=== PATIENT | female | born 1960 | race Caucasian/White ===

== ENCOUNTER 2021-10-24 23:46 | Emergency (ER) | payer BC, SELFPAY ==
[2021-10-24 23:55] VITALS: BP 178/99; PULSE 84; RESP 22; TEMP 36.8; O2SAT 99; BMI 23.8
[2021-10-25] VITALS (15 sets, daily range): BP systolic 119–185; BP diastolic 84–124; PULSE 79–159; RESP 12–24; O2SAT 96–99
--- NOTE | 2021-10-25 00:11 | DI.RAD.S_ITS ---
PROCEDURE: XR CHEST 1V INDICATIONS: chest pain TECHNIQUE: One view of the chest was acquired. COMPARISON: None. FINDINGS: Surgical changes and devices: None. Lungs and pleura: Lungs are clear. No pleural effusions or pneumothorax. Mediastinum: Mediastinal contours appear normal. Heart size is normal. Bones and chest wall: No suspicious bony lesions. Overlying soft tissues appear unremarkable. IMPRESSION: 1. No acute cardiopulmonary disease. Dictated by: Jose L Ordaz M.D. on 10/25/2021 at 1:00 Approved by: Jose L Ordaz M.D. on 10/25/2021 at 1:00
[2021-10-25 00:24] LABS: Add Manual Diff / Slide Review NO; Basophils Absolute Auto 100 /uL (0-100); Basophils Percent Auto 0.7 % (0-2); Eosinophils Absolute Auto 200 /uL (0-450); Hematocrit 47.5 % (36-46); Lymphocytes Absolute Auto 2300 /uL (1100-4500); Lymphocytes Percent Auto 20.2 % (25-40); Mean Corpuscular HGB Conc 33.7 % (30-36); Mean Corpuscular Hemoglobin 30.9 PG (26-34); Mean Corpuscular Volume 91.7 fL (80-100); Monocytes Absolute Auto 1000 /uL (0-900); Monocytes Percent Auto 8.4 % (3-14); Neutrophils Absolute Auto 7800 /uL (1500-7000); Neutrophils Percent Auto 68.7 % (50-75); Platelet Count 304 X10^3/uL (150-400); Red Blood Cell Count 5.18 X10^6/uL (4.0-5.2); Red Cell Distribution Width 13.6 % (11.6-14.8); White Blood Cell Count 11.4 X10^3/uL (4.5-11.0)
[2021-10-25 00:33] LABS: INR 1.1 (0.9-1.3); Prothrombin Time 12.5 SECONDS (10.1-12.7)
[2021-10-25 00:46] LABS: D Dimer < 500 ng/ml (<500)
[2021-10-25 00:47] LABS: Alanine Aminotransferase 35 IU/L (<35); Albumin 4.4 g/dL (3.5-5.0); Albumin Globulin Ratio 1.4 (1.0-2.8); Alkaline Phosphatase 97 U/L (38-126); Aspartate Aminotransferase 28 IU/L (14-36); BUN Creatinine Ratio 12.3 (6-22); Bilirubin Total 0.6 mg/dL (0.2-1.3); Blood Urea Nitrogen 7 mg/dL (7-17); Calcium 9.1 mg/dL (8.4-10.2); Carbon Dioxide 27 mmol/L (22-32); Chloride 102 mmol/L (98-107); Creatine Kinase 97 U/L (30-135); Estimated Glomerular Filt Rate > 60 mL/min (>60); Globulin 3.2 g/dL (1.7-4.1); Glucose 137 mg/dL (80-110); HEMOLYSIS < 15 (0-50); Lipase 58 U/L (23-300); Magnesium 1.9 mg/dL (1.6-2.3); Potassium 3.9 mmol/L (3.4-5.1); Sodium 137 mmol/L (137-145); Total Protein 7.6 g/dL (6.3-8.2)
[2021-10-25 00:58] LABS: Troponin I < 0.012 ng/mL (0.01-0.034)
[2021-10-25] MEDS: dilTIAZem 5 MG/ML SDV 20 MG IV (01:31)
[2021-10-25] MEDS: DILTIAZEM 125 MG/125 ML PIGGYBACK IV (01:35)
--- NOTE | 2021-10-25 02:24 | ED.CHESTPAIN ---
HPI - Chest Pain General Chief Complaint: Chest Pain Stated Complaint: Afib Time Seen by Provider: 10/25/21 00:04 Source: patient Mode of arrival: Ambulatory Limitations: no limitations History of Present Illness HPI narrative: 61-year-old woman visiting from [place] with a newly diagnosed history of paroxysmal atrial fibrillation. She been having episodes of exertional dyspnea that was unexplained until July of this year when she was noted to be in atrial fibrillation. She is followed by a formulation chemist and currently is on flecainide 150 mg(1 week ago it had been 100 mg), carvedilol 12.5 mg(1 week ago was at 25 mg and prior to that she had been on metoprolol). She has never been cardioverted with her most recent episode of atrial fibrillation she was given a dose of diltiazem it sounds like she self converted. She is scheduled for an ablation in January. She is not currently anticoagulated beyond aspirin. Additional medications include atorvastatin 10 mg hydrochlorothiazide 12.5 mg and cetirizine 10 mg. She notes that at 1:00 p.m. last night she began having increasing dyspnea, suspected that she was in atrial fibrillation. She flew from [place] this morning to [place] to visit her sister here in [place] and is continuing to have exertional dyspnea and feeling unwell. She noted that her heart rate was elevated as was her blood pressure and comes in for further evaluation. She states that she has not been having lower extremity edema, orthopnea, fevers, cough, headaches, abdominal pain, vomiting, diarrhea. She has not had overt chest pain. Related Data Previous Rx's Medication Instructions Recorded apixaban 5 mg tablet (Eliquis) 5 mg PO BID #60 tabs 10/25/21 Allergies Allergy/AdvReac Type Severity Reaction Status Date / Time No Known Drug Allergies Allergy Verified 10/25/21 03:18 Review of Systems Review of Systems Narrative: Remainder of complete review of systems is otherwise unremarkable except for that included in the HPI. Patient History Medical History (Updated 10/25/21 @ 04:18 by Clarisse Fernandez MD) Hyperlipidemia Hypertension Paroxysmal atrial fibrillation Seasonal allergies Social History Smoking Status: Former smoker Smoking Status: Former smoker tobacco type: cigarettes Substance Use Type: does not use Exam Initial Vital Signs Initial Vital Signs: Vital Signs Temperature 98.3 F 10/24/21 23:55 Pulse Rate 84 10/24/21 23:55 Respiratory Rate 22 10/24/21 23:55 Blood Pressure 178/99 H 10/24/21 23:55 Pulse Oximetry 99 10/24/21 23:55 Oxygen Delivery Method 10/24/21 23:55 General: Healthy appearing, in no acute distress. Able to give a complete and coherent history. Well-nourished well-developed HEENT: Moist mucous membranes, normal sclera with reactive pupils, Neck: No JVD, supple Respiratory: Lungs are clear to auscultation, no wheezing no rales no rhonchi. Full and symmetrical air movement Cardiac: Rapid and irregular with no murmurs no bruits Abdomen: Soft, nontender, good bowel tones, no flank pain Skin: Warm and dry, no rashes Neurologic: Grossly neurologically intact with no obvious asymmetries or abnormalities Extremities: No trauma, well perfused, no lower extremity edema no chronic venous stasis changes Psych: Cooperative, appropriate insight and affect Course Orders Ordered: ED Orders 10/25/21 00:04 EKG-12 Lead Stat 10/25/21 00:11 XR chest 1V Stat 10/25/21 00:15 Complete Blood Count AUTO DIFF Stat Comprehensive Metabolic Panel Stat D Dimer Stat Lipase Stat Magnesium Stat Prothrombin Time INR Stat Troponin & CK Cardiac Panel Stat DILTIAZEM (Diltiazem 125 Mg/125 Ml-D5w) 125 mg in 125 mls @ 5 mls/hr IV TITRATE [facility]; Protocol Last Admin: 10/25/21 01:35 Dose: 5 mg/hr, 5 mls/hr Documented By: PARISH Discontinued Medications Diltiazem HCl (Diltiazem 5 Mg/Ml Sdv) 20 mg IV NOW ONE Stop: 10/25/21 01:12 Last Admin: 10/25/21 01:31 Dose: 20 mg Documented By: PARISH Vital Signs Vital signs: Vital Signs - 8 hr 10/24/21 23:55 10/25/21 00:14 10/25/21 00:30 Temperature 98.3 F Pulse Rate 84 98 H Respiratory Rate 22 20 Blood Pressure 178/99 H 180/119 H Pulse Oximetry 99 99 Oxygen Delivery Method Room Air 10/25/21 00:30 10/25/21 00:32 10/25/21 00:32 Temperature Pulse Rate 106 H 107 H Respiratory Rate 16 19 Blood Pressure 185/113 H Pulse Oximetry 98 99 Oxygen Delivery Method 10/25/21 01:31 10/25/21 01:00 10/25/21 01:00 Temperature Pulse Rate 120 H 115 H Respiratory Rate 18 Blood Pressure 150/103 H 181/124 H Pulse Oximetry 97 Oxygen Delivery Method 10/25/21 01:30 10/25/21 01:30 10/25/21 01:35 Temperature Pulse Rate 120 H 79 Respiratory Rate 17 15 Blood Pressure 150/103 H 136/84 Pulse Oximetry 96 96 Oxygen Delivery Method 10/25/21 02:01 10/25/21 02:30 10/25/21 02:54 Temperature Pulse Rate 159 H 109 H 106 H Respiratory Rate 15 16 Blood Pressure Pulse Oximetry 97 96 Oxygen Delivery Method 10/25/21 03:00 10/25/21 03:15 10/25/21 03:15 Temperature Pulse Rate 104 H 107 H Respiratory Rate 12 13 Blood Pressure 125/88 Pulse Oximetry 97 97 Oxygen Delivery Method MDM - Chest Pain Lab Data Result diagrams: 10/25/21 00:15 10/25/21 00:15 Labs: Lab Results 10/25/21 10/25/21 10/25/21 Range/Units 00:15 00:15 00:15 WBC 11.4 H (4.5-11.0) X10^3/uL RBC 5.18 (4.0-5.2) X10^6/uL Hgb 16.0 (12.0-16.0) g/dL Hct 47.5 H (36-46) % MCV 91.7 (80-100) fL MCH 30.9 (26-34) PG MCHC 33.7 (30-36) % RDW 13.6 (11.6-14.8) % Plt Count 304 (150-400) X10^3/uL Neut % (Auto) 68.7 (50-75) % Lymph % (Auto) 20.2 L (25-40) % [place] % (Auto) 8.4 (3-14) % Eos % (Auto) 2.0 (2-4) % Baso % (Auto) 0.7 (0-2) % Neut # (Auto) 7800 H (0802-9185) /uL Lymph # (Auto) 2300 (4309-0011) /uL [place] # (Auto) 1000 H (0-900) /uL Eos # (Auto) 200 (0-450) /uL Baso # (Auto) 100 (0-100) /uL PT 12.5 (10.1-12.7) SECONDS INR 1.1 (0.9-1.3) D-Dimer (<500) ng/ml Sodium 137 (137-145) mmol/L Potassium 3.9 (3.4-5.1) mmol/L Chloride 102 (98-107) mmol/L Carbon Dioxide 27 (22-32) mmol/L BUN 7 (7-17) mg/dL Creatinine 0.57 (0.52-1.04) mg/dL Estimated GFR > 60 (>60) mL/min BUN/Creatinine Ratio 12.3 (6-22) Glucose 137 H (80-110) mg/dL Calcium 9.1 (8.4-10.2) mg/dL Magnesium 1.9 (1.6-2.3) mg/dL Total Bilirubin 0.6 (0.2-1.3) mg/dL AST 28 (14-36) IU/L ALT 35 H (<35) IU/L Alkaline Phosphatase 97 (38-126) U/L Total Creatine Kinase 97 (30-135) U/L CK-MB (CK-2) TNP CK-MB (CK-2) Rel Index TNP Troponin I < 0.012 (0.01-0.034) ng/mL Total Protein 7.6 (6.3-8.2) g/dL Albumin 4.4 (3.5-5.0) g/dL Globulin 3.2 (1.7-4.1) g/dL Albumin/Globulin Ratio 1.4 (1.0-2.8) Lipase 58 (23-300) U/L 10/25/21 Range/Units 00:15 WBC (4.5-11.0) X10^3/uL RBC (4.0-5.2) X10^6/uL Hgb (12.0-16.0) g/dL Hct (36-46) % MCV (80-100) fL MCH (26-34) PG MCHC (30-36) % RDW (11.6-14.8) % Plt Count (150-400) X10^3/uL Neut % (Auto) (50-75) % Lymph % (Auto) (25-40) % [place] % (Auto) (3-14) % Eos % (Auto) (2-4) % Baso % (Auto) (0-2) % Neut # (Auto) (7840-4639) /uL Lymph # (Auto) (6169-6814) /uL [place] # (Auto) (0-900) /uL Eos # (Auto) (0-450) /uL Baso # (Auto) (0-100) /uL PT (10.1-12.7) SECONDS INR (0.9-1.3) D-Dimer < 500 (<500) ng/ml Sodium (137-145) mmol/L Potassium (3.4-5.1) mmol/L Chloride (98-107) mmol/L Carbon Dioxide (22-32) mmol/L BUN (7-17) mg/dL Creatinine (0.52-1.04) mg/dL Estimated GFR (>60) mL/min BUN/Creatinine Ratio (6-22) Glucose (80-110) mg/dL Calcium (8.4-10.2) mg/dL Magnesium (1.6-2.3) mg/dL Total Bilirubin (0.2-1.3) mg/dL AST (14-36) IU/L ALT (<35) IU/L Alkaline Phosphatase (38-126) U/L Total Creatine Kinase (30-135) U/L CK-MB (CK-2) CK-MB (CK-2) Rel Index Troponin I (0.01-0.034) ng/mL Total Protein (6.3-8.2) g/dL Albumin (3.5-5.0) g/dL Globulin (1.7-4.1) g/dL Albumin/Globulin Ratio (1.0-2.8) Lipase (23-300) U/L Imaging Data Chest x-ray: Radiologist's Impression: FINDINGS:? ? Surgical changes and devices:? None.? ? Lungs and pleura:? Lungs are clear.? No pleural effusions or pneumothorax.? ? Mediastinum:? Mediastinal contours appear normal.? Heart size is normal.? ? Bones and chest wall:? No suspicious bony lesions.? Overlying soft tissues appear unremarkable.? ? IMPRESSION:? ? 1.? No acute cardiopulmonary disease. ? ? ? Dictated by: Jose L Ordaz M.D. on 10/25/2021 at 1:00 ? ? ECG Data Interpretation: AFib with rapid ventricular response, rate of [address] T wave changes Normal axis MDM Narrative Medical decision making narrative: 61-year-old woman with paroxysmal atrial fibrillation currently on flecainide that was increased a week ago and Coreg that was decreased to week ago followed by cardiology at the [facility] scheduled for ablation in January presents with paroxysmal atrial fibrillation and hypertension along with dyspnea. Labs are reassuring with a normal troponin after at least 24 hours of atrial fibrillation. Given her history she certainly noticed her atrial fibrillation at 1:00 p.m. last night but I am not convinced that 1:00 p.m. was the actual onset of her atrial fibrillation. She is not currently anticoagulated beyond aspirin and I am not comfortable with cardioversion in the emergency department. She is given a bolus of diltiazem and a diltiazem drip with her rate coming down into the 70s and converting to atrial flutter with of variable 3:1 and 4:1 block. Blood pressure remains slightly elevated however her diastolics have been consistently above 100 over the last week based on her home blood pressure readings. There is no evidence of acute coronary syndrome or congestive heart failure at this time. No suggestion of pulmonary embolism, DVT or stroke Care is reviewed with the formulation chemist on-call for her primary cardiology group in [place], Dr. Neo Quintero. His recommendation was to go ahead and anticoagulate her, avoid electrical cardioversion from the emergency department and consider JULIAN evaluation prior to cardioversion. He felt that not making significant medication changes as medications were just changed a week ago was likely appropriate and did feel that going back to 25 mg of [place] Reg as long as her rate and blood pressure are elevated with safe. She does have scheduled follow-up when she returns to [place] however if she continues to remain symptomatic will need to return to the emergency department and be seen by Cardiology with discussion of julian and cardioversion. In the meantime will start her on apixaban 5 mg b.i.d. findings and plans are reviewed with her. She is safe for discharge home at this time Critical Care Time Critical Care Time Critical Care Time: Yes Total Critical Care Time: 33 Attestation: Critical care time is separate from other billable procedures. There is a high probability of a significant, sudden or life-threatening deterioration that requires my full and direct attention, intervention and personal management. This critical care time includes consultation with family and other consulting doctors, review of records, and interpretation of data from labs, EKGs and imaging as well as managements of atrial fibrillation with rapid ventricular response, hypertension with IV hypertensive management. Discharge Plan Departure Patient Disposition: Home Clinical Impression: Atrial fibrillation with RVR Instructions: DI for Atrial Fibrillation Activity Restrictions/Additional Instructions: Thank you for coming in today I know that atrial fibrillation can be a very frustrating disease After talking with the formulation chemist on-call for your formulation chemist in [place] I have a couple of recommendations: 1. It is safe for you to go home. After workup here in the emergency department there is no evidence of heart attack, heart attack like syndrome or congestive heart failure 2. I am going to start you on Eliquis/apixaban a blood thinner to reduce your risk of stroke related to paroxysmal atrial fibrillation. You have been given 5 mg in the emergency department and a prescription for a month. You need to continue 5 mg twice a day until directed by your formulation chemist. 3. Please continue your 150 mg of flecainide, this needs at least another week at this higher dose before there are any additional changes 4. While you are in atrial fibrillation, please take 25 mg morning and night of your Coreg. If you are in regular sinus rhythm and your heart rate is slow, please decrease back to 12.5 mg of coreg, morning and evening. 5. If you are having chest pain, becoming more short of breath, find that you have trouble laying flat please return to the emergency department. You are always welcome to return to [facility] however, if you need to be cardioverted you will need a formulation chemist and likely a trans esophageal echocardiogram. This is a service that is not available at [facility] but is available at [facility] in [place] and [place] in [place]. 6. Please make sure you follow-up with your formulation chemist when to return to [place] I hope that you are able to enjoy your couple of days visiting in spite of this paroxysmal atrial fibrillation I wish you the best Prescriptions: New Eliquis 5 mg tablet 5 mg PO BID Qty: 60 0RF
[2021-10-25] MEDS: carvediloL 12.5 MG TABLET 25 MG PO (03:57)
[2021-10-25] MEDS: APIXABAN 5 MG TABLET PO (03:57)
== END 2021-10-25 04:31 | disposition home or self-care (01) ==
PROVIDERS: Emergency Provider Emergency Medicine
DX: I48.91 Unspecified atrial fibrillation (principal); R07.9 Chest pain, unspecified
CPT/HCPCS: 36415; 71045; 80053; 82550; 83690; 83735; 84484; 85025; 85379; 85610; 93005; 93010; 96365; 96366; 96375; 99284